=== PATIENT | male | born 1970 | race African-American/Black ===

== ENCOUNTER 2016-12-06 16:13 | Observation (INO) | payer BC ==
[~2016-12-06] VITALS: Ht 188 cm; Wt 129.3 kg
--- NOTE | ~2016-12-06 | H ---
[facility] [place] [address] HISTORY AND PHYSICAL Name: MARCO ANTONIO SOLER Room #: 427-P [facility] IN M.R.#: [id number] Admission: 12/06/16 Attend Phys: Luis Fernandez MD Discharge: 12/07/16 Date of : 70 Report #: [id number] THIS REPORT FOR: //name// CC: ANTONI physician/PCP Luis Fernandez DATE OF SERVICE: 12/06/2016 CHIEF COMPLAINT: Diaphoresis, chest pressure. HISTORY OF PRESENT ILLNESS: The patient is a 46-year-old male with history of hypertension, diabetes, history of obesity, status post gastric bypass surgery 4 years ago, presented to the Emergency Room because of severe dizziness and diaphoresis. The patient is on glipizide 10 mg twice a day, apparently took his dose this morning. He was at work at around 7:30 when he started having severe diaphoresis. This continued through the day and he was not able to work. He returned back home. At home, he started having some chest pressure and dyspnea and dizziness. He called [employer] and when EMS arrived, his blood sugar was 40. The patient's blood sugar in the Emergency Room was 101. The patient denies any chest pain at present. No fever or chills. He has lost around 150 pounds since he had a gastric bypass surgery. The patient denies any nausea or vomiting. He normally takes small frequent meals. PAST MEDICAL HISTORY: Significant for gout and gastric bypass surgery, hypertension, apparently his blood pressure has been running high at home. History of cholecystectomy. ALLERGIES: No known drug allergy. HOME MEDICATIONS: Reviewed, please look at the nursing documentation. SOCIAL HISTORY: No smoking, alcohol abuse, or illicit drug abuse. FAMILY HISTORY: Significant for hypertension and diabetes. REVIEW OF SYSTEMS: CONSTITUTIONAL: He has lost around 150 pounds since he had a gastric bypass surgery. No fever or chills. EYES: No change in vision. THROAT: Denies any sore throat. CARDIOVASCULAR: As above. RESPIRATORY: As above. No cough or expectoration. GASTROINTESTINAL: No nausea, vomiting, abdominal pain. GENITOURINARY: No dysuria, hematuria. NEUROLOGIC: No focal numbness or weakness of the extremity. PSYCHIATRIC: No anxiety or depression. [facility] [address] [place] [address] HISTORY AND PHYSICAL Name: MARCO ANTONIO SOLER Room #: 427-P [facility] IN M.R.#: [id number] Admission: 12/06/16 Attend Phys: Luis Fernandez MD Discharge: 12/07/16 Date of : 70 Report #: [id number] A 12-point review of system is negative other than the positive and negative dictated in the history of present illness and the review of system. PHYSICAL EXAMINATION: VITAL SIGNS: Blood pressure 175/81, heart rate of 96 per minute, afebrile. GENERAL: The patient is awake and alert, not in acute respiratory distress. EYES: Pupils equal, reactive to light, nonicteric conjunctivae. THROAT: Appears normal. NECK: Supple, no JVD, no bruit, no lymphadenopathy. CARDIOVASCULAR SYSTEM: S1, S2, negative S3, no murmur. CHEST: Bilateral air entry present. Clear on auscultation. ABDOMEN: Soft, bowel sounds present, no mass, no organomegaly. The patient has tenderness in his left flank area for the last 3 months. PERIPHERY: No pedal edema. No calf tenderness. Dorsalis pedis 1+. NEUROLOGICAL: No gross motor or sensory deficit. LABORATORY DATA: Reviewed. He had an echocardiogram done earlier this year, which showed EF of 55% to 60%, no stenosis. Mild mitral regurgitation. His blood glucose on his lab work was 101. His white count is 6, hemoglobin is 13.1. His BUN and creatinine are 21 and 1.5. His previous creatinine in July was 1.6 and 1.7. Troponin is negative. His EKG showed sinus rhythm, left atrial enlargement, probably early repolarization pattern. Chest x-ray showed no acute abnormality. There was minor bibasilar atelectasis. ASSESSMENT AND PLAN: 1. Severe diaphoresis secondary to hypoglycemia. 2. Hypoglycemia. We will hold off on his glipizide at present, will check an A1c level. The patient's blood sugar will be closely monitored with frequent Accu-Cheks. 3. Chest pressure, most likely a symptom of his hypoglycemia. We will do serial troponin. We will keep him n.p.o. after midnight for a possible stress test. 4. Hypertension, uncontrolled. We will continue with losartan. We will add Norvasc 5 mg once a day. I have also ordered p.r.n. hydralazine. 5. Creatinine of 1.5, most likely chronic kidney disease stage 3. 6. Left flank pain. We will obtain a CT of his abdomen and pelvis to further evaluate this pain. 7. Obesity, status post gastric bypass surgery. The patient has lost 150 pounds since surgery. 8. Deep venous thrombosis prophylaxis, he will be on Lovenox for DVT prophylaxis. [facility] [address] [place] [address] HISTORY AND PHYSICAL Name: MARCO ANTONIO SOLER Room #: 427-P [facility] IN M.R.#: [id number] Admission: 12/06/16 Attend Phys: Luis Fernandez MD Discharge: 12/07/16 Date of : 70 Report #: [id number] Treatment plan has been explained to the patient in detail. <ELECTRONICALLY SIGNED> By: Luis Fernandez MD 12/07/16 1315 [id number] 1951 Luis Fernandez MD /nt
--- NOTE | ~2016-12-06 | EKG ---
[address] [place] [address] ELECTROCARDIOGRAM REPORT Name: MARCO ANTONIO SOLER Room #: 427-P [facility] IN M.R.#: [id number] Admission: 12/06/16 Attend Phys: Luis Fernandez MD Discharge: Date of : 70 Report #: [id number] THIS REPORT FOR: //name// Formerly [facility] ED Test Date: 2016-12-06 Test Time: 16:23:43 Pat Name: MARCO ANTONIO SOLER Department: Room: 427 Gender: M [employer] Test Developer: ZEE : 1970 Requested By: Km Aguilera Order Number: [id number] MD: Mike Robert Measurements Intervals [place] Rate: 98 P: 36 WA: 190 QRS: 9 QRSD: 90 T: 25 QT: 352 QTc: 450 Interpretive Statements Sinus rhythm Left atrial enlargement nonspecific ST segment abnormalities Compared to ECG 07/26/2016 08:32:57 no significant change Electronically Signed On 12-07-2016 8:56:22 CDT by Mike Robert [email or web address] <ELECTRONICALLY SIGNED> By: Mike Robert MD 12/07/16 0856 1623 1623 Mike Robert MD /HARITHA
[~2016-12-06 16:13] MED LIST: ASPIR 8181 MG PO; ATORVASTATIN CA40 MG PO; COZAAR 50 MG TA50 M2 PO; FLEXERIL PO; GLUCOTROL5 MG PO; METFORMIN HCL500 MG PO
[2016-12-06 16:14] VITALS: BP 193/96
[2016-12-06 16:27] LABS: BASOPHILS 1.1 % (0.0-2.0); EOSINOPHILS 1.2 % (0.0-3.0); HEMATOCRIT 39.7 % (42.0-52.0); HEMOGLOBIN 13.1 gm/dL (14.0-18.0); MCH 27.6 pg (26.0-34.0); MCHC 32.9 g/dL (28.0-37.0); MCV 84.1 fL (80.0-100.0); MONOCYTES 5.5 % (1.0-8.0); PLATELET COUNT 305 thou/uL (150-400); POLYS 66.2 % (36.0-66.0); RBC 4.72 mil/uL (4.50-6.00); RDW 16.3 % (10.5-14.5)
[2016-12-06 16:28] LABS: MANUAL DIFF NO
[2016-12-06 16:39] LABS: ANION GAP 11 mmol/L (7-16); BUN 21 mg/dL (7-18); CALCIUM 8.6 mg/dL (8.5-10.1); CHLORIDE 107 mmol/L (98-107); CO2 23 mmol/L (21-32); CREATININE 1.5 mg/dL (0.7-1.3); GLUCOSE 101 mg/dL (74-106); POTASSIUM 4.3 mmol/L (3.5-5.1); SODIUM 141 mmol/L (136-145)
[2016-12-06 16:49] LABS: TROPONIN-I < 0.04 ng/mL (<0.04-0.07)
[2016-12-06 17:30] VITALS: BP 188/92
[2016-12-06 17:41] LABS: ALBUMIN 3.1 g/dL (3.4-5.0); ALKALINE PHOSPHATASE 97 U/L (46-116); SGOT 42 U/L (15-37); SGPT 53 U/L (30-65); TOTAL BILIRUBIN 0.1 mg/dL (<0.1-1.0); TOTAL PROTEIN 7.1 g/dL (6.4-8.2)
[2016-12-06 17:48] LABS: DIRECT BILIRUBIN < 0.1 mg/dL (<0.1-0.3)
[2016-12-06 18:31] VITALS: BP 175/81
[2016-12-06 19:24] LABS: CHOLESTEROL 269 mg/dL (<200); HDL CHOLESTEROL 57 mg/dL (>40); LDL CHOLESTEROL 149 mg/dL (<100); TC:HDL 4.7 Ratio (Not establshd); TRIGLYCERIDE 316 mg/dL (<150); VLDL 63 mg/dL (<40)
[2016-12-06 23:59] LABS: URINE BILIRUBIN NEGATIVE (Negative); URINE BLOOD TRACE (Negative); URINE COLOR YELLOW; URINE GLUCOSE-RANDOM* NEGATIVE (Negative); URINE KETONES NEGATIVE (Negative); URINE LEUKOCYTES-REFLEX NEGATIVE (Negative); URINE PROTEIN (DIPSTICK) 2+ (Negative); URINE UROBILINOGEN 0.2 E.U./dl (0.2-1.0)
[2016-12-07 00:27] LABS: CASTS None Seen /LPF (None Seen); CRYSTALS None Seen /LPF (None Seen); SQUAMOUS None Seen /LPF (0-3); URINE RBC None Seen /HPF (0-2); URINE WBC-REFLEX 0-5 Rare /HPF (0-5)
[2016-12-07 00:44] VITALS: BP 152/90
[2016-12-07 04:27] VITALS: BP 136/81
[2016-12-07 04:59] LABS: BASOPHILS 0.8 % (0.0-2.0); EOSINOPHILS 1.8 % (0.0-3.0); HEMATOCRIT 36.9 % (42.0-52.0); LYMPHOCYTES 36.4 % (24.0-44.0); MCH 27.1 pg (26.0-34.0); MCHC 32.6 g/dL (28.0-37.0); MCV 83.2 fL (80.0-100.0); MONOCYTES 7.1 % (1.0-8.0); PLATELET COUNT 274 thou/uL (150-400); POLYS 53.9 % (36.0-66.0); RBC 4.43 mil/uL (4.50-6.00); RDW 16.7 % (10.5-14.5); WBC 5.5 thou/uL (4.0-11.0)
[2016-12-07 05:02] LABS: MANUAL DIFF NO
[2016-12-07 05:13] LABS: ANION GAP 7 mmol/L (7-16); BUN 18 mg/dL (7-18); CALCIUM 7.8 mg/dL (8.5-10.1); CHLORIDE 110 mmol/L (98-107); CO2 25 mmol/L (21-32); CREATININE 1.4 mg/dL (0.7-1.3); GLUCOSE 94 mg/dL (74-106); MAGNESIUM 2.1 mg/dL (1.8-2.4); POTASSIUM 3.9 mmol/L (3.5-5.1); SODIUM 142 mmol/L (136-145); TROPONIN-I < 0.04 ng/mL (<0.04-0.07)
[2016-12-07 06:10] LABS: GLYCOHEMOGLOBIN (HGB A1C) 6.1 % (4.8-5.6)
[2016-12-07 08:00] VITALS: BP 157/97
[2016-12-07] MEDS ORDERED: LOPRESSOR25 PO ×2 (09:30→09:36)
[2016-12-07] MEDS ORDERED: AMBIEN 5 MG TABL5 M1 PO (09:30)
[2016-12-07 10:01] VITALS: BP 157/97
== END 2016-12-07 10:48 | disposition home or self-care (01) ==
LOC: ER 16:13 → 4E 17:59 → EROBS 17:59 → 4E 17:59
PROVIDERS: Internal Medicine; Physician Assistant
DX: E11.649 Type 2 diabetes mellitus with hypoglycemia without coma (principal); M10.9 Gout, unspecified; I10 Essential (primary) hypertension; E66.9 Obesity, unspecified; R10.9 Unspecified abdominal pain; R06.02 Shortness of breath; E87.6 Hypokalemia; Z90.49 Acquired absence of other specified parts of digestive tract; Z82.49 Family history of ischemic heart disease and other diseases of the circulatory system; Z83.3 Family history of diabetes mellitus; Z98.84 Bariatric surgery status; Z68.36 Body mass index [BMI] 36.0-36.9, adult; Z79.4 Long term (current) use of insulin
CPT/HCPCS: 10183

== ENCOUNTER 2017-01-05 10:10 | Emergency (ER) | payer BC ==
[~2017-01-05] VITALS: Ht 188 cm; Wt 126.1 kg
[~2017-01-05 10:10] MED LIST changes: +AMBIEN 5 MG TABL5 M1 PO; +LOPRESSOR25 PO
[2017-01-05] MEDS ORDERED: HYDROCHLOROTH12.5 M1 PO (14:20)
== END 2017-01-05 14:27 | disposition home or self-care (01) ==
LOC: ER 10:10
DX: I10 Essential (primary) hypertension (principal); E11.9 Type 2 diabetes mellitus without complications; F10.99 Alcohol use, unspecified with unspecified alcohol-induced disorder; Z90.49 Acquired absence of other specified parts of digestive tract; Z88.1 Allergy status to other antibiotic agents